=== PATIENT | female | born 1995 | race Caucasian/White ===

== ENCOUNTER 2016-07-13 19:15 | Emergency (ER) | payer OTHER ==
[~2016-07-13] VITALS: Wt 53.5 kg
[2016-07-13] MEDS ORDERED: ALPRAZOLAM 0.25 MG TAB PO ONE (20:30)
[2016-07-13] MEDS ORDERED: ALPR1TAB2 PO (21:09)
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
[2016-07-13 22:45] VITALS: BP 128/88; PULSE 58; RESP 18; TEMP 98
== END 2016-07-13 22:46 | disposition left against medical advice (07) ==
LOC: FTE 19:15
DX: F41.9 Anxiety disorder, unspecified (principal); F17.210 Nicotine dependence, cigarettes, uncomplicated
CPT/HCPCS: 93005